=== PATIENT | male | born 1975 | race Two or more races ===

== ENCOUNTER 2024-11-24 18:11 | Inpatient (IN) | payer OTHER ==
[2024-11-24 19:00] VITALS: BMI 26.4
[2024-11-24] MEDS ORDERED: chlordiazePOXIDE HCL 25 MG CAPSULE PO PRN (19:06)
[2024-11-24] MEDS ORDERED: BISMUTH SUBSALICYLATE 524 MG/30 ML PO PRN (19:13)
[2024-11-24] MEDS ORDERED: guaiFENesin 600 MG TABLET.ER (FP) PO PRN (19:13)
[2024-11-24] MEDS ORDERED: BENZOCAINE/MENTHOL (CHLORASEPTIC ) LOZENGE MM PRN (19:13)
[2024-11-24] MEDS ORDERED: NICOTINE POLACRILEX 2 MG GUM BUC PRN (19:13)
[2024-11-24] MEDS ORDERED: P-EPHED 60MG/TRIPROLIDI 2.5MG TABLET PO PRN (19:13)
[2024-11-24] MEDS ORDERED: IBUPROFEN 400 MG TABLET (FP) PO PRN (19:13)
[2024-11-24] MEDS ORDERED: MAG HYDROX/AL HYDROX/SIMETH 30 ML UNIT-DOSE CUP PO PRN (19:13)
[2024-11-24] MEDS ORDERED: DICYCLOMINE HCL 10 MG CAPSULE PO PRN (19:13)
[2024-11-24] MEDS ORDERED: BENZONATATE 200 MG CAPSULE PO PRN (19:13)
[2024-11-24] MEDS ORDERED: NICOTINE POLACRILEX 2 MG LOZENGE BC PRN (19:13)
[2024-11-24] MEDS ORDERED: LOPERAMIDE HCL 2 MG CAPSULE PO PRN (19:13)
[2024-11-24] MEDS ORDERED: ACETAMINOPHEN 325 MG TABLET (FP) PO PRN (19:13)
[2024-11-24] MEDS ORDERED: MAGNESIUM HYDROX 2400MG/30ML ORAL SUSPENSION 30 ML CUP PO PRN (19:13)
[2024-11-24] MEDS ORDERED: chlordiazePOXIDE HCL 25 MG CAPSULE ONE (19:27)
[2024-11-24] MEDS ORDERED: cloNIDine HCL 0.1 MG TABLET ONE (19:41)
[2024-11-24] MEDS: chlordiazePOXIDE HCL 25 MG CAPSULE PO ONE (19:56)
[2024-11-24] MEDS: cloNIDine HCL 0.1 MG TABLET PO ONE (19:56)
[2024-11-24] MEDS: levETIRAcetam 500 MG TABLET (FP) PO SCH (23:27)
[2024-11-24] MEDS: THIAMINE 100 MG TABLET PO SCH (23:27)
[2024-11-24] MEDS: chlordiazePOXIDE HCL 25 MG CAPSULE PO SCH (23:27)
[2024-11-24] MEDS: MELATONIN 5 MG TABLETS PO SCH (23:27)
[2024-11-25 09:10] LABS: HEMATOCRIT 35.1 % (35.4-49); HEMOGLOBIN 11.8 GM/dL (11.7-16.9); MCH 33.8 pg (25.7-33.7); MCHC 33.8 g/dl (32.0-35.9); MEAN CELL VOLUME 100.1 fl (80-96); MEAN PLT VOLUME 8.5 fl (7.5-11.1); PLATELET COUNT 51 10^3/uL (134-434); RDW 13.3 % (11.9-15.9); WHITE BLOOD COUNT 3.6 K/mm3 (4.0-10.0)
[2024-11-25 09:20] LABS: CHLORIDE 99 mmol/L (98-107); POTASSIUM 3.1 mmol/L (3.5-5.1); SODIUM 136 mmol/L (136-145)
[2024-11-25 09:46] LABS: CALCIUM 8.5 mg/dL (8.5-10.1)
[2024-11-25 09:47] LABS: ALBUMIN 3.1 g/dl (3.4-5.0); ANION GAP 8 mmol/L (4-13); BLOOD UREA NITROGEN 7.6 mg/dL (7-18); CO2 28 mmol/L (21-32); GLUCOSE,RANDOM 124 mg/dL (74-106)
[2024-11-25 09:50] LABS: CREATININE 0.9 mg/dL (0.55-1.3); SGOT/AST 218 U/L (15-37)
[2024-11-25 09:51] LABS: SGPT/ALT 53 U/L (13-61)
[2024-11-25 09:52] LABS: BILIRUBIN,TOTAL 2.3 mg/dL (0.2-1); TOT PROT 6.5 g/dl (6.4-8.2)
[2024-11-25 09:53] LABS: ALK PHOS 112 U/L (45-117)
[2024-11-25] MEDS: PRENATAL VITAMINS W/ FOLIC ACID TABLET (FP) PO SCH (10:42)
[2024-11-25] MEDS: ONDANSETRON *ODT* 4 MG TABLET SL PRN (10:45)
[2024-11-26] MEDS: chlordiazePOXIDE HCL 25 MG CAPSULE PO SCH (05:50)
[2024-11-26] MEDS: IBUPROFEN 600 MG TABLET (FP) PO PRN (10:20)
[2024-11-26] MEDS: POLYETHYLENE GLYCOL (HEALTHYLAX) 3350 17 GM PACKET PO PRN (10:24)
[2024-11-26] MEDS ORDERED: POTASSIUM CHLORIDE ORAL LIQUID 20 MEQ/15 ML PO ONE (19:41)
[2024-11-26] MEDS: POTASSIUM CHLORIDE ORAL LIQUID 20 MEQ/15 ML PO ONE (22:12)
[2024-11-27] MEDS ORDERED: chlordiazePOXIDE HCL 10 MG CAPSULE PO PRN
[2024-11-27] MEDS: METHOCARBAMOL 500 MG TABLET PO PRN (03:39)
[2024-11-27] MEDS: hydrOXYzine PAMOATE 25 MG CAPSULE (FP) PO PRN (03:41)
[2024-11-27] MEDS: chlordiazePOXIDE HCL 10 MG CAPSULE PO SCH (05:28)
[2024-11-27 09:21] LABS: CALCIUM 9.2 mg/dL (8.5-10.1)
[2024-11-27 09:23] LABS: BLOOD UREA NITROGEN 9.2 mg/dL (7-18)
[2024-11-27 09:25] LABS: CREATININE 0.8 mg/dL (0.55-1.3)
[2024-11-28] MEDS: chlordiazePOXIDE HCL 10 MG CAPSULE PO SCH (05:42)
[2024-11-29] MEDS: chlordiazePOXIDE HCL 10 MG CAPSULE PO ONE (05:25)
[2024-11-29 09:11] VITALS: BP 140/94; PULSE 81; RESP 16; TEMP 98
== END 2024-11-29 10:17 | disposition home or self-care (01) | DRG 775 ==
LOC: YASAS 18:11 → Y3N 20:57
PROVIDERS: ADMIT Allergy & Immunology; ATTEND Allergy & Immunology
PROC: HZ2ZZZZ Detoxification Services for Substance Abuse Treatment (ICD-10-PCS; principal; 2024-11-24)
DX: F10.230 Alcohol dependence with withdrawal, uncomplicated (principal); F17.210 Nicotine dependence, cigarettes, uncomplicated; F10.282 Alcohol dependence with alcohol-induced sleep disorder; Z62.810 Personal history of physical and sexual abuse in childhood; Z87.820 Personal history of traumatic brain injury
CPT/HCPCS: 36415; 80048; 80053; 80305; 80307; 85027; 86780; 93005; 93010; Q0162